=== PATIENT | male | born 1990 ===

== ENCOUNTER → 2023-12-16 15:54 | Outpatient (CLI) | payer OTHER, SELFPAY ==
--- NOTE | ~2023-12-16 | CT_ITS ---
EXAMINATION: CT sinus wo con DATE: 12/16/2023 16:08 INDICATION: Deviated nasal septum. TECHNIQUE: Computed tomography (CT) of the paranasal sinuses was performed without intravenous contra st. Iterative reconstruction technique was employed. The dose-length product was 420.49 mGy-cm. COMPARISON: None FINDINGS: The frontal sinuses are clear. There is mild mucosal thickening in the bilateral ethmoid an d sphenoid sinuses. There is mild mucosal thickening in left maxillary sinus. There are Gregorio cells bilaterally. There is leftward deviation of the nasal septum. The ostiomeatal units are patent. The m iddle turbinates are partially paradoxical. IMPRESSION: 1. Mild mucosal thickening in the paranasal sinuses. 2. Leftward deviation of the nasal septum. Reviewed, dictated and finalized at location A. [employer]
== END ==
PROVIDERS: PCP Internal Medicine; Visit Provider Otolaryngology
DX: J34.2 Deviated nasal septum (principal)
CPT/HCPCS: 70486